=== PATIENT | male | born 1990 | race Caucasian/White ===

== ENCOUNTER 2021-04-19 16:19 | Inpatient (IN) | payer OTHER ==
[~2021-04-19] VITALS: Ht 172.7 cm; Wt 104.3 kg
== END 2021-04-22 20:40 | disposition home or self-care (01) | DRG 438 ==
LOC: ER 16:19 → SEC-K 04-20 11:52 → SURH 04-20 11:52 → MEDJ 04-22 11:41
PROVIDERS: ADMIT Internal Medicine; ATTEND Internal Medicine
PROC: BW21ZZZ Computerized Tomography (CT Scan) of Abdomen and Pelvis (ICD-10-PCS; principal; 2021-04-20)
DX: K85.20 Alcohol induced acute pancreatitis without necrosis or infection (principal); U07.1 COVID-19; R10.31 Right lower quadrant pain